=== PATIENT | female | born 1970 | race Caucasian/White ===

== ENCOUNTER → 2019-10-15 | Outpatient (CLI) | payer OTHER ==
[~2019-10-15] MED LIST: DCS100C PO; FLC1T PO; HYDR-3454 PO; HYDR-3714 PO; Hydrocodone Bit/Acetaminophen PO; IBUP-30 PO; LEVO500T69 PO; METO25TA2 PO; METR500T PO; OMEP20CA12 PO; OMEP40CA36 PO; PHEN200T27 PO; RT-ALBUTEROL SULF 2.5 MG/3 ML PRE-MIX VIAL INH ONE; SIMV20TA3 PO; TRIA1TAB3 PO
== END ==
LOC: RT 07:56
PROVIDERS: ATTEND Nurse Practitioner Family
DX: J30.9 Allergic rhinitis, unspecified (principal); R13.10 Dysphagia, unspecified
CPT/HCPCS: 94060; 94726; 94729

== ENCOUNTER 2019-10-20 20:50 | Outpatient (CLI) | payer OTHER ==
[~2019-10-20 20:50] MED LIST changes: -RT-ALBUTEROL SULF 2.5 MG/3 ML PRE-MIX VIAL INH ONE
== END 2019-10-21 06:27 | disposition home or self-care (01) ==
LOC: SLEEP 20:50
PROVIDERS: ATTEND Nurse Practitioner Family
DX: G47.33 Obstructive sleep apnea (adult) (pediatric) (principal); G47.10 Hypersomnia, unspecified; G47.50 Parasomnia, unspecified
CPT/HCPCS: 95810

== ENCOUNTER → 2023-06-04 | Outpatient (CLI) | payer OTHER ==
[~2023-06-04] VITALS: Ht 170.2 cm; Wt 84.1 kg
[~2023-06-04] MED LIST changes: +BACL20TA PO; +DCCL10A2 IM; +FEXO-14 PO; +IBUP-1773 PO; +MULT-1136 PO; +NEOM28.34 TP; +OMEP40CA6 PO; +RT-ALBUINH INH
== END | disposition home or self-care (01) ==
LOC: PREOP 05:30
PROVIDERS: ATTEND Obstetrics & Gynecology
DX: Z01.818 Encounter for other preprocedural examination (principal)

== ENCOUNTER 2023-06-11 05:59 | Day surgery (SDC) | payer OTHER ==
[~2023-06-11] VITALS: Ht 170.2 cm; Wt 84.1 kg
[2023-06-11] VITALS (12 sets, daily range): BP systolic 87–128; BP diastolic 55–84
[~2023-06-11 05:59] MED LIST changes: -IBUP-1773 PO; -NEOM28.34 TP
[2023-06-11] MEDS ORDERED: LACTATED RINGERS 1,000 ML 1,000 ML IV PRN (06:15)
[2023-06-11] MEDS ORDERED: FAMOTIDINE INJ 20MG/2ML VIAL IV ONE (06:45)
[2023-06-11] MEDS ORDERED: ONDANSETRON INJECTION 4 MG/2 ML (SDV) IV ONE (06:45)
[2023-06-11] MEDS ORDERED: LIDOCAINE/EPI 1%-1:200,000 (XYLOCAINE) 30 ML VIAL ONE (06:58)
[2023-06-11] MEDS ORDERED: fentaNYL INJECTION 100 MCG/2 ML VIAL ONE (07:07)
[2023-06-11] MEDS ORDERED: dexAMETHasone INJ 10 MG/ML 1 ML VIAL ONE (07:07)
[2023-06-11] MEDS ORDERED: ONDANSETRON INJECTION 4 MG/2 ML (SDV) ONE (07:07)
[2023-06-11] MEDS ORDERED: proPOfol INJECTION 200 MG/20 ML VIAL IV ONE (07:07)
[2023-06-11] MEDS ORDERED: LIDOCAINE PF 2% 5 ML VIAL ONE (07:07)
[2023-06-11] MEDS ORDERED: SEVOFLURANE (ULTANE) 15 ML INHAL SOLN ONE (07:07)
[2023-06-11] MEDS ORDERED: MIDAZOLAM INJ 2 MG/2 ML VIAL ONE (07:08)
--- NOTE | 2023-06-11 07:16 | Progress Note-Pre Operative ---
Pre-Operative Progress Note Date of Available H&P: Jun 11, 2023 Date H&P Reviewed: Jun 11, 2023 Time H&P Reviewed: 07:05 History & Physical: H&P Reviewed, No changes noted, Changes noted below Changes from last HP Pt was found to have atypical glandular cells on her pap smear and we discussed D&C hysteroscopy risks and benefits were d/w pt in detail and pt had ample opportunity to ask questions and had her questions answered to her satisfaction. Pt signed consents and is ready to proceed. Pre-Operative Diagnosis: Vulvar skin tag ELI Plan: remove skin tag D&C H TANIA NELSON DO Jun 11, 2023 07:16
[2023-06-11] MEDS ORDERED: LIDOCAINE/EPI 1%-1:200,000 (XYLOCAINE) 30 ML VIAL INJ ONE (07:37)
[2023-06-11] MEDS ORDERED: IBUP-1773 PO (07:58)
[2023-06-11] MEDS ORDERED: NEOM28.34 TP (07:58)
--- NOTE | 2023-06-11 07:59 | Discharge Inst-Simple/Standard ---
Discharge Inst-Standard Reconcile Patient Problems Problems Reviewed?: Yes Discharge Medications New, Converted or Re-Newed RX: Transmitted to Pharmacy Patient Instructions/Follow Up Plan of Care/Instructions/FU: f/u in 1 week use peribottle after each toilet use Activity as Tolerated: Yes Discharge Diet: Regular Diet TANIA NELSON DO Jun 11, 2023 07:59
--- NOTE | 2023-06-11 08:02 | Anesthesia-General Post-Op ---
General Patient Condition Mental Status/LOC: Same as Preop Cardiovascular: Satisfactory Nausea/Vomiting: Absent Respiratory: Satisfactory Pain: Controlled Complications: Absent Post Op Complications Complications None Follow Up Care/Instructions Patient Instructions None needed. Anesthesia/Patient Condition Patient Condition Patient is doing well, no complaints, stable vital signs, no apparent adverse anesthesia problems. No complications reported per nursing. MARLYN TRAVIS CRNA Jun 11, 2023 08:02
--- NOTE | 2023-06-11 08:07 | OB/GYN Operative Report ---
Operative Report Date of Procedure:Jun 11, 2023 Preoperative Diagnosis:Atypical glandular cells of undetermined significance, vulvar mass Postoperative Diagnosis: Same plus atrophic endometrium Name of the Procedure: D&C hysteroscopy removal of vulvar mass Surgeon: Tania Nelson Project Executive(s): [none] Anesthesia: General LMA Indications for Procedure: Large mass/skin tag on right vulva atypical glandular cells of undetermined significance on Pap smear Findings of the Procedure: Atrophic endometrium large vulvar mass on the right vulva Complications: None Disposition: Counts correct x2 and patient taken to PACU in stable condition Description of the Procedure: Informed consent was obtained and signed and patient was taken to the OR [facility]. 3 placed under general LMA anesthesia placed in the dorsolithotomy position prepped and draped usual sterile fashion. A timeout was performed. Pelvic exam under anesthesia revealed a very small midline uterus no adnexal masses. A weighted speculum was placed into the posterior vaginal vault and single-tooth tenaculum was used to grasp antilipid the cervix uterus sounded to about 4 cm. The os was dilated to allow passage of the hysteroscope the hysteroscope was then inserted and did see the fundus but was unable to visualize the ostia there was noted to be adhesions. And pictures were obtained. The hysteroscope was then removed and endometrial curettings were obtained to there was a good uterine cry this was sent to pathology for further analysis. The single-tooth and weighted speculum were then removed and attention was paid to the perineum where the vulvar lesion was. The area was injected with 1% lidocaine with epinephrine. Using scissors were removed the mass from its base and sent that off to pathology for further analysis. The biopsy site was then reapproximated using 3-0 Rapide in a running fashion. The estimated blood loss was minimal fluids were 700 cc and urine output was 50 cc and I/O was 750/700. The patient was taken to recovery room in stable condition all my counts were correct x2 TANIA NELSON DO Jun 11, 2023 08:07
[2023-06-11] MEDS ORDERED: MEPERIDINE INJ 50 MG/ML VIAL IVP ONE (08:15)
[2023-06-11] MEDS ORDERED: morphine INJ 10 MG/ML 1ML (SYR OR VIAL) IVP ONE (08:15)
[2023-06-11] MEDS ORDERED: ONDANSETRON INJECTION 4 MG/2 ML (SDV) IVP PRN (08:15)
== END 2023-06-11 10:25 | disposition home or self-care (01) ==
LOC: SDC 05:59
PROVIDERS: ATTEND Obstetrics & Gynecology
DX: N85.8 Other specified noninflammatory disorders of uterus (principal); N90.89 Other specified noninflammatory disorders of vulva and perineum; N72 Inflammatory disease of cervix uteri; K21.9 Gastro-esophageal reflux disease without esophagitis; Z79.899 Other long term (current) drug therapy
CPT/HCPCS: 84703; 87081